=== PATIENT | female | born 1945 | race Two or more races ===

== ENCOUNTER 2021-01-13 16:01 | Emergency (ER) | payer OTHER ==
[~2021-01-13] VITALS: Ht 157.5 cm; Wt 90.7 kg
[2021-01-13] MEDS ORDERED: ONDANSETRON HCL 4 MG/2 ML VIAL IV ONE ×2 (16:30→21:00)
[2021-01-13] MEDS ORDERED: SODIUM CHLORIDE 0.9% 1,000 ML IV ONE (16:30)
[2021-01-13 16:49] LABS: Urine Bacteria MANY /hpf (None Seen); Urine Blood 3+ /uL (Negative); Urine WBC 109 /hpf (0 - 5); Urine WBC Clumps PRESENT /hpf (None Seen)
[2021-01-13 16:58] LABS: Urine Specific Gravity 1.023 (1.001-1.035)
[2021-01-13 17:21] LABS: Basophils # (auto) 0 10 ^3/uL (0-0.2); Basophils % (auto) 0.2 % (0.0-2.0); Eosinophils # (auto) 0 10 ^3/uL (0-0.8); Hematocrit 37.8 % (36.0-46.0); Hemoglobin 12.5 g/dL (12.2-16.2); Lymphocytes # (auto) 0.8 10 ^3/uL (0.4-5.4); Lymphocytes % (auto) 5.2 % (10.0-50.0); Mean Corpuscular Hemoglobin 26.2 pg (28.0-32.0); Mean Corpuscular Volume 79.4 fL (80.0-100.0); Monocytes # (auto) 0.5 10 ^3/uL (0-1.3); Monocytes % (auto) 3.3 % (0.0-12.0); Neutrophils # (auto) 13.3 10 ^3/uL (1.6-8.6); Neutrophils % (auto) 91.3 % (37.0-80.0); Platelet Count (auto) 172 10^3/uL (140-450); Red Blood Cells 4.76 10^6/uL (4.0-5.20); White Blood Cell 14.6 10^3/uL (4.4-10.8)
[2021-01-13 17:36] LABS: INR 0.97 (0.9-1.15); Partial Thromboplastin Time 22.8 sec (23.0-31.2)
[2021-01-13 17:39] LABS: Alanine Aminotransferase 31 U/L (13-56); Albumin 3.7 g/dL (3.4-5.0); Amylase 41 U/L (25-115); Anion Gap 9 (5-15); Aspartate Aminotransferase 20 U/L (15-37); BUN/Creatinine Ratio 27.2; Blood Urea Nitrogen 22 mg/dL (7-18); Calcium 9.2 mg/dL (8.5-10.1); Carbon Dioxide 25 mmol/L (21-32); Chloride 103 mmol/L (98-107); GFR African American 88 mL/min; GFR Non-African American 73 mL/min; Glucose 187 mg/dL (74-106); Lipase 41 U/L (73-393); Magnesium 1.5 mg/dL (1.6-2.6); Potassium 3.4 mmol/L (3.5-5.1); Sodium 137 mmol/L (136-145)
[2021-01-13 17:44] LABS: Alkaline Phosphatase 74 U/L (45-117); Bilirubin, Total 0.5 mg/dL (0.2-1.0); Total Protein 8.2 g/dL (6.4-8.2)
[2021-01-13] MEDS ORDERED: VANCOMYCIN PER PHARMACY 0 MG IV SCH (18:30)
[2021-01-13] MEDS ORDERED: PIPERACILLIN-TAZOB 3.375GM 100 ML IV ONE (18:30)
[2021-01-13 20:45] VITALS: BP 133/71
[2021-01-13] MEDS ORDERED: ONDANSETRON HCL 4 MG/2 ML VIAL ONE (20:55)
[2021-01-13] MEDS ORDERED: VANCOMYCIN 1GM/250ML 250 ML IV SCH (21:00)
== END 2021-01-13 21:00 | disposition designated cancer center or children's hospital (05) ==
LOC: ER 16:01
DX: A48.0 Gas gangrene (principal); K51.00 Ulcerative (chronic) pancolitis without complications; N39.0 Urinary tract infection, site not specified; R06.02 Shortness of breath; K21.9 Gastro-esophageal reflux disease without esophagitis; Z20.822 Contact with and (suspected) exposure to COVID-19
CPT/HCPCS: 36415; 74176; 80053; 81001; 82150; 82728; 83605; 83690; 83735; 83880; 84484; 85025; 85610; 85730; 87040; 87086; 87426; 93005; 96361; 96365; 96366; 96375; 99285; C9803; J2405; J2543; J7030; U0003